=== PATIENT | male | born 1975 | race Caucasian/White ===

== ENCOUNTER 2022-12-24 19:19 | Emergency (ER) | payer MEDICAID, SELFPAY ==
[2022-12-24 19:26] VITALS: BP 131/94; PULSE 75; RESP 24; TEMP 36.6; O2SAT 99
--- NOTE | 2022-12-24 20:45 | DI.CT_ITS ---
Exam(s) CT ABDOMEN PELVIS W EXAM: CT ABDOMEN PELVIS W CLINICAL HISTORY: left sided pain, vomiting. TECHNIQUE: Imaging Protocol: Axial computed tomography images with coronal and sagittal reformatted images were created and reviewed CONTRAST MATERIAL: Intravenous: Omnipaque-350 100cc Oral: None COMPARISON: CT ABD PELVIS WITH CONTRAST from 03/27/2015 FINDINGS: VISUALIZED LUNG BASES: There is a stable unchanged 3 millimeter nodule in the lateral basal segment o f the left lower lobe, unchanged from 2015. There is also an unchanged larger nodule in the lateral basal segment of the right lower lobe which measures 8 mm, unchanged. There are no new nodules in th e visualized lung bases. There are no pleural effusions.. ABDOMEN: There is no ascites. LIVER: Liver is again noted be hypodense consistent with significant steatosis. There are no distinc t focal hepatic lesions. No dilated intrahepatic ducts. GALLBLADDER/BILIARY: No obvious gallbladder pathology. CBD is not dilated. PANCREAS: No evidence of pancreatic mass nor dilatation of the pancreatic duct. SPLEEN: Spleen is not enlarged. No obvious intrasplenic lesions. Splenic and portal veins are paten t. ADRENALS: There are no significant adrenal masses. KIDNEYS:No cysts evident. No solid renal masses. No calculi nor hydronephrosis.. ABDOMINAL AORTA: Abdominal aorta is not enlarged. LYMPH NODES:There is no retroperitoneal nor paraaortic adenopathy. ABDOMINAL WALL: No evidence of significant anterior abdominal wall nor inguinal hernia. GI: There is a dilated central jejunal loop which exhibits diameter 3.4 cm. No surrounding mesenteri c streaking. PELVIS: GI: No evidence of appendicitis.There is sigmoid diverticulosis. No obvious acute diverticulitis. LYMPH NODES: There is no intrapelvic nor inguinal adenopathy. REPRODUCTIVE: Prostate not enlarged. URINARY BLADDER: No calculi nor obvious masses evident OSSEOUS: No fractures nor osseous lesions. Anterolisthesis L5 upon S1 due to unilateral pars defect at L5 level. IMPRESSION: 1. There is dilatation of a centrally located loop of jejunum to 3.4 cm. Either focal I ileus versus early developing bowel obstruction. Appropriate follow-up recommended. No free air. No ascites. No abscess. 2. Sigmoid diverticulosis. No obvious acute diverticulitis. RADIATION DOSE DELIVERED: 1,081.69mGy.cm Total DLP DATA REPOSITORY: All CT scans at this facility are submitted to the National Radiology Data Registry (NRDR) Dose Index Registry (DIR) with the [employer] (A[employer]). RADIATION OPTIMIZATION: All CT scans at this facility use at least one of these dose optimization te chniques: automated exposure control; mA and/or kV adjustment per patient size (includes targeted exa ms where dose is matched to clinical indication); or iterative reconstruction.
[2022-12-24] MEDS: Normal Saline 1,000 ML 1000 ML IV (21:00)
[2022-12-24] MEDS: Droperidol 5 MG/2 ML VIAL 1.25 MG IVP (21:00)
[2022-12-24 21:02] LABS: Abs Immature Grans 0.03 10^3/uL (0.0-0.06); Absolute Basophil Count 0.04 10^3/uL (0.0-0.2); Absolute Eosinophil Count 0.01 10^3/uL (0.0-0.7); Absolute Lymphocyte Count 1.15 10^3/uL (1.2-3.4); Absolute Monocyte Count 0.39 10^3/uL (0.1-0.8); Absolute Neutrophil Count 8.77 10^3/uL (1.2-6.7); Basophils % 0.4; Eosinophils % 0.1; HCT 45.4 % (40.0-50.0); HGB 15.8 g/dL (13.5-17.5); Immature Grans % 0.3; Lymphocytes % 11.1; MCH 28.9 pg (27.0-33.0); MCHC 34.8 % (32.0-36.0); MCV 83 fL (80-95); Monocytes % 3.8; Neutrophils % 84.3; RBC 5.47 10^6/uL (4.36-5.78); RDW 12.1 % (11.8-14.1); RDW-SD 36.6 fL; WBC 10.39 10^3/uL (4.4-10.8)
[2022-12-24 21:12] LABS: Lipase 78 U/L (16-77)
[2022-12-24 21:29] LABS: Platelet Count 225 10^3/uL (130-400)
[2022-12-24 21:34] LABS: ALT 41 U/L (16-63); AST 29 U/L (15-37); Albumin 4.7 g/dL (3.4-5.0); Alkaline Phosphatase 76 U/L (46-116); Anion Gap 12.8 mmol/L (3-11); BUN 17 mg/dL (7-18); CO2 22.2 mmol/L (21.0-32.0); Calcium 9.6 mg/dL (8.5-10.1); Chloride 103 mmol/L (98-107); Glucose 110 mg/dL (74-106); Magnesium 1.9 mg/dL (1.8-2.4); Potassium 3.8 mmol/L (3.5-5.1); Sodium 138 mmol/L (136-145); Total Protein 8.1 g/dL (6.4-8.2)
--- NOTE | 2022-12-24 21:41 | ED.GENADUL_ITS ---
Discharge Plan Disposition Patient Disposition: Home Discharge Details Clinical Impression: Abdominal pain, Nausea, vomiting and diarrhea Primary Care Provider: Freddy Cueto ED Provider: Margarita Segura Home Meds and New Rx's Prescriptions: New ondansetron 4 mg tablet,disintegrating 4 mg PO Q8H PRNQty: 10 0RF No Action sertraline 100 MG tablet 100 mg PO DAILY omeprazole 20 MG capsule,delayed release(DR/EC) ondansetron [Zofran ODT] 4 MG tablet,disintegrating 4 mg PO Q4H PRNQty: 12 0RF Discharge Instructions Instructions: Acute Nausea and Vomiting (ED), Abdominal Pain (ED) Additional Instructions: Return to ED for worsening pain, migration of pain to right lower abdomen, high fevers, or intractable vomiting. Referrals: Freddy Cueto [Primary Care Provider] - 3 days Discharge Data Discharge Physician: Margarita Segura Medical Decision Making 47-year-old male presents for evaluation of abdominal pain and vomiting. Treated with IV fluids and droperidol with significant improvement of symptoms. Did not have any further vomiting. Laboratory studies are unremarkable. Pelvis shows likely gastroenteritis. Patient understands treatment at home. Abdominal exam is non-acute and patient is in no distress. Will discharge home. Patient to push fluids and advance diet as tolerated. Patient is to follow up with PMD. Patient understands that symptoms may worsen and the testing in the emergency department does not rule out the early stages of a possible surgical condition. Will return to ED for worsening pain, migration of pain to right lower abdomen, high fevers, or intractable vomiting. HPI General Date/Time Provider Initiated Documentation: 12/24/22 19:47 . HPI Narrative: 47-year-old male presents for evaluation of vomiting. Patient states that he often does have some vomiting in the morning upon awakening however he had significant vomiting today. He did not eat until lunchtime. After eating lunch he has had multiple episode of vomiting. He also has some pain to the left side of his abdomen. He states his entire stomach now hurts from vomiting so much. He did have 1 episode of diarrhea. Denies any urinary difficulty. Denies any alcohol use. Denies any marijuana use. No history of abdominal surgeries. He states he has had a colonoscopy in the past with polyps removed. Does not recall if he has ever had diverticulitis. Denies any history of pancreatitis. No fevers or chills. Denies any abnormal food ingestions. Denies any sick contacts. Related Data Home Medications Medication Instructions Recorded Confirmed sertraline 100 mg tablet 100 mg PO DAILY 03/27/15 12/18/16 omeprazole 20 mg capsule,delayed 12/18/16 release ondansetron 4 mg disintegrating 4 mg PO Q4H PRN ##12 12/18/16 tablet (Zofran ODT) ondansetron 4 mg disintegrating 4 mg PO Q8H PRN #10 tabs 12/24/22 tablet Previous Rx's Medication Instructions Recorded ondansetron 4 mg disintegrating 4 mg PO Q4H PRN ##12 12/18/16 tablet (Zofran ODT) ondansetron 4 mg disintegrating 4 mg PO Q8H PRN #10 tabs 12/24/22 tablet Allergies Allergy/AdvReac Type Severity Reaction Status Date / Time venom-honey bee Allergy Intermediate Swelling/Ed Unverified 12/18/16 11:31 [bee venom (honey bee)] sujey General Stated Complaint: Abd Prob SHAYE: 3 Review of Systems Narrative: Remainder of review of systems otherwise negative except for as noted in the HPI x10. PFSH All Active Problems (Updated 12/24/22 @ 23:12 by Margarita Segura MD) Abdominal pain (Acute) Nausea, vomiting and diarrhea (Acute) Medical History Anxiety, generalized GERD (gastroesophageal reflux disease) hyperlipidemia Surgical History EGD/COLONOSCOPY W/MAC (04/16/15) DR.TERRY MENCHACA Social History Smoking/Tobacco Use Status: Current every day Smoking risk assessment performed?: Yes Drug use: Daily Substance use type: marijuana Do you feel safe in your relationship?: Yes Exam Narrative Exam Narrative: General: non-toxic, no respiratory distress, uncomfortable HEENT: normocephalic, atraumatic, lids and lashes normal, PERRL, EOMI, anicteric sclera, no conjunctival injection, moist oral mucosa Card: regular rate and rhythm, S1S2, no murmurs, rubs, or gallops Lungs: good air entry, clear to auscultation bilaterally. no wheezes, rales, rhonchi, or retractions Abd: soft, non-tender, non-distended, normal bowel sounds, no rebound or guarding, no peritoneal signs, no CVAT Musculoskeletal: full range of motion of arms and legs, no tenderness to palpation. no clubbing, cyanosis, or edema Neurologic: appropriate for age, strength normal Psych: alert and oriented Skin: no petechiae, no lesions, warm and dry Course Vital Signs Vital signs: Vital Signs Temperature 36.6 C 12/24/22 19:26 Pulse 75 12/24/22 19:26 Respiratory Rate 24 12/24/22 19:26 Blood Pressure 131/94 H 12/24/22 19:26 Pulse Oximetry 99 12/24/22 19:26 Temperature 36.6 C 12/24/22 19:26 Pulse 75 12/24/22 19:26 Respiratory Rate 24 12/24/22 19:26 Respiratory Effort Normal 12/24/22 20:24 Blood Pressure 131/94 H 12/24/22 19:26 Pulse Oximetry 99 12/24/22 19:26 Oxygen Delivery Method Room Air 12/24/22 19:26 Oxygen Flow Rate 0 12/24/22 19:26 Lab/Test Results Lab/Test Results: Laboratory Tests Range/Units 12/24/22 12/24/22 12/24/22 20:05 20:05 20:05 WBC (4.4-10.8) 10^3/uL 10.39 RBC (4.36-5.78) 10^6/uL 5.47 Hgb (13.5-17.5) g/dL 15.8 Hct (40.0-50.0) % 45.4 MCV (80-95) fL 83 MCH (27.0-33.0) pg 28.9 MCHC (32.0-36.0) % 34.8 RDW (11.8-14.1) % 12.1 Plt Count (130-400) 10^3/uL 225 MPV (8.0-11.0) fL Immature Gran % 0.3 Neutrophils % 84.3 Lymphocytes % 11.1 Monocytes % 3.8 Eosinophils % 0.1 Basophils % 0.4 Nucleated RBC % (0.0-0.3) % 0.0 Absolute Neutrophils (1.2-6.7) 10^3/uL 8.77 H Absolute Lymphocytes (1.2-3.4) 10^3/uL 1.15 L Absolute Monocytes (0.1-0.8) 10^3/uL 0.39 Absolute Eosinophils (0.0-0.7) 10^3/uL 0.01 Absolute Basophils (0.0-0.2) 10^3/uL 0.04 Sodium (136-145) mmol/L 138 Potassium (3.5-5.1) mmol/L 3.8 Chloride (98-107) mmol/L 103 Carbon Dioxide (21.0-32.0) mmol/L 22.2 Anion Gap (3-11) mmol/L 12.8 H BUN (7-18) mg/dL 17 Creatinine (0.70-1.30) mg/dL 1.0 Est GFR (CKD-EPI 2020) (mL/min/1.73m2) 94.00 Glucose (74-106) mg/dL 110 H Calcium (8.5-10.1) mg/dL 9.6 Magnesium (1.8-2.4) mg/dL 1.9 Total Bilirubin (0.2-1.0) mg/dL 1.0 AST (15-37) U/L 29 ALT (16-63) U/L 41 Alkaline Phosphatase (46-116) U/L 76 Total Protein (6.4-8.2) g/dL 8.1 Albumin (3.4-5.0) g/dL 4.7 Lipase (16-77) U/L 78 H PAWSS Have you Been Recently Intoxicated or Drunk Within the Last 30 days?: No Have you Ever Experienced Previous Episodes of Alcohol Withdrawal?: No Have you ever Experienced Withdrawal Seizures?: No Have you ever Experienced Delirium Tremens(DT)s?: No Have you ever undergone Alcohol Rehabilitation Treatment (i.e, inpt ot outpatient treatment programs)?: No Have you ever Experienced Blackouts?: No Have you ever Combined Alcohol with other Downers within the last 90 days?: No Have you ever Combined Alcohol with any other Substance of Abuse during the last 90 days?: No Positive Blood Alcohol level on Presentation? [PCS.BAL]: No Evidence of Increased Autonomic Activity (i.e. HR>120, tremor, sweating, agitation, nausea)?: No Result: 0
[2022-12-24] MEDS: Omnipaque 350 MG/ML 100 ML BTL IJ (21:47)
[2022-12-24] MEDS: Normal Saline - Diluent 50 ML VIAL IJ (21:49)
--- NOTE | 2022-12-24 23:08 | DI.VRAD_ITS ---
PROCEDURE INFORMATION: Exam: CT Abdomen And Pelvis With Contrast Exam date and time: 12/24/2022 9:47 PM Age: 47 years old Clinical indication: Abdominal pain; Localized; Left; Additional info: Left sided pain, vomiting TECHNIQUE: Imaging protocol: Computed tomography of the abdomen and pelvis with contrast. Radiation optimization: All CT scans at this facility use at least one of these dose optimization techniques: automated exposure control; mA and/or kV adjustment per patient size (includes targeted exams where dose is matched to clinical indication); or iterative reconstruction. Contrast material: OMNI 350; Contrast volume: 100 ml; Contrast route: INTRAVENOUS (IV); COMPARISON: No relevant prior studies available. FINDINGS: Liver: Normal. No mass. Gallbladder and bile ducts: Normal. No calcified stones. No ductal dilation. Pancreas: Normal. No ductal dilation. Spleen: Normal. No splenomegaly. Adrenal glands: Normal. No mass. Kidneys and ureters: Normal. No hydronephrosis. Stomach and bowel: Gas in the distal esophagus which can be seen with reflux. There is gastric wall prominence and some wall prominence to some mildly dilated loops of proximal small bowel with intervening normal regions. Findings are concerning for gastroenteritis. An element of small bowel ileus is not excluded. Scattered colonic diverticula are seen. There is wall prominence to the descending colon which can be seen with underdistention or colitis. Appendix: No evidence of appendicitis. Intraperitoneal space: Unremarkable. No free air. No significant fluid collection. Vasculature: Mild vascular calcifications.. No abdominal aortic aneurysm. Lymph nodes: There are some prominent periaortic lymph nodes which measure less than 1 cm on short axis. These may be reactive. No enlarged lymph nodes by size criteria. Urinary bladder: The internal contents of the urinary bladder measure greater than water density. Components of blood or infection are not excluded. Reproductive: Prostate calcifications which can be seen with prior episodes of prostatitis. Bones/joints: Bilateral L5 pars defects with anterolisthesis of L5 on S1. No acute fracture. Soft tissues: Unremarkable. IMPRESSION: 1. There is gastric wall prominence and some wall prominence to some mildly dilated loops of proximal small bowel with intervening normal regions. Findings are concerning for gastroenteritis. An element of small bowel ileus is not excluded. 2. There is wall prominence to the descending colon which can be seen with underdistention or colitis. 3. The internal contents of the urinary bladder measure greater than water density. Components of blood or infection are not excluded. Other findings/details as above. Dictated and Authenticated by: Alexa Severino MD. Ordering:[id number] Avila MD
[2022-12-24] MEDS: Ondansetron O.D.T. 4 MG TABEF, 3 TABS/BTL PO (23:40)
[2022-12-24 23:42] VITALS: BP 122/55; PULSE 71; RESP 20; TEMP 37.2; O2SAT 97
== END 2022-12-24 23:42 | disposition home or self-care (01) ==
PROVIDERS: Emergency Provider Emergency Medicine Emergency Medical Services; PCP Internal Medicine
DX: R11.2 Nausea with vomiting, unspecified (principal); R19.7 Diarrhea, unspecified; R10.9 Unspecified abdominal pain
CPT/HCPCS: 80053; 83690; 96361; 96374; 99285; 74177; 83735; 85025; 99284; J1790; J3490